=== PATIENT | male | born 1960 | race Caucasian/White ===

== ENCOUNTER → 2020-11-11 | Outpatient (CLI) | payer OTHER ==
[~2020-11-11] MED LIST: B Complex1 EAC2 PO; BOTOX COSMETIC100 U; BUPR100ER; CHOL10002; FINA5; FISH OIL 1,0001 EAC3; FLAX SEED OIL1000 MG PO; GRAPESEED OIL4000 ML MC; GREEN TEA CAPL1 EACH PO; GREEN TEA EXTR250 MG PO; Garlic1 EACH PO; MAGCHL64ER; PROBIOTIC1 EAC1 PO; SILD25T PO; Vitamin C100 M1 PO
[2020-11-11 18:01] LABS: BASOPHILS ABSOLUTE AUTO 0.06 K/mm3 (0.00-0.23); BASOPHILS PERCENT AUTO 1 % (0-2); EOSINOPHILS ABSOLUTE AUTO 0.06 K/mm3 (0.00-0.68); EOSINOPHILS PERCENT AUTO 1 % (0-6); Hematocrit 42.8 % (37.0-53.0); Hemoglobin 15.5 g/dL (13.5-17.5); IMMATURE GRAN ABSOLUTE AUTO 0.01 K/mm3 (0.00-0.10); IMMATURE GRAN PERCENT AUTO 0 % (0-1); LYMPHOCYTES ABSOLUTE AUTO 1.16 K/mm3 (0.84-5.20); LYMPHOCYTES PERCENT AUTO 22 % (21-46); MONOCYTES ABSOLUTE AUTO 0.45 K/mm3 (0.16-1.47); MONOCYTES PERCENT AUTO 9 % (4-13); Mean Corpuscular HGB 32.2 pg (26.0-34.0); Mean Corpuscular HGB Conc 36.2 g/dL (31.5-36.5); Mean Corpuscular Volume 89 fL (80-100); Mean Platelet Volume 10.7 fL (9.1-12.4); NEUTROPHILS ABSOLUTE AUTO 3.49 K/mm3 (1.96-9.15); NEUTROPHILS PERCENT AUTO 67 % (41-73); Platelet Count 276 K/mm3 (150-400); RDW Coefficient Variation 12.7 % (11.7-14.2); RDW Standard Deviation 41.1 fL (35.1-46.3); Red Blood Cell Count 4.82 M/mm3 (4.30-5.90); White Blood Cell Count 5.23 K/mm3 (4.00-11.30)
[2020-11-11 18:12] LABS: Alanine Aminotransfer (ALT/SGP 24 U/L (12-78); Albumin/Globulin Ratio 1.4 (0.8-1.8); Alk Phos 78 U/L (40-126); Anion Gap 4 mmol/L (6-16); Aspartate Aminotrans (AST/SGOT 14 U/L (12-37); Bilirubin, Total 0.3 mg/dL (0.1-1.0); Blood Urea Nitrogen 23 mg/dL (8-24); Bun/Creatinine Ratio 23.5 (12.0-20.0); CO2, Blood 31 mmol/L (21-32); Calcium, Blood 8.9 mg/dL (8.5-10.1); Chloride, Blood 103 mmol/L (98-108); Creatinine, Blood 0.98 mg/dL (0.60-1.20); Globulin, Blood 2.8 g/dL (2.2-4.0); Glomerular Filtration Rate >60 (60-); Glucose, Blood 96 mg/dL (70-99); Potassium, Blood 3.9 mmol/L (3.5-5.5); Sodium, Blood 138 mmol/L (136-145); Total Protein, Blood 6.8 g/dL (6.4-8.2)
== END | disposition home or self-care (01) ==
LOC: LAB SHORT 17:54 → LAB EV 17:54 → PLD 17:54
PROVIDERS: Chiropractor
DX: R07.9 Chest pain, unspecified (principal); R06.00 Dyspnea, unspecified
CPT/HCPCS: 80053; 83880; 84484; 85025; 85379

== ENCOUNTER → 2021-05-13 | Outpatient (CLI) | payer OTHER | LOC: LAB SHORT 18:14 → LAB 18:14 | DX: L08.9 Local infection of the skin and subcutaneous tissue, unspecified (principal); Z48.02 Encounter for removal of sutures | CPT/HCPCS: 87070; 87077; 87147; 87186; 87205 ==

== ENCOUNTER 2021-06-11 18:25 | Inpatient (IN) | payer OTHER ==
[~2021-06-11] VITALS: Ht 172.7 cm; Wt 81.9 kg
[~2021-06-11 18:25] MED LIST changes: -ASPI81CH PO; -ATOR10 PO; -CARV3.125 PO; -COLCHICINE0.6 MG PO; -Isosorbide Mono30 MG PO; -LISI5 PO; -PANT20 PO; -SPIR25 PO; -TAMSULOSIN HCL0.4 M1 PO; -TICA90TA PO
[2021-06-11] MEDS ORDERED: TAMSULOSIN HCL0.4 M1 PO (19:36)
[2021-06-11 19:40] LABS: Chloride (POC) 92 mmol/L (98-108); Glucose (ISTAT POC) 151 mg/dL (70-99); Hemoglobin (POC) 14.3 g/dL (13.5-17.5); Sodium (POC) 141 mmol/L (135-148); Total CO2 (POC) 38 mmol/L (21-32)
[2021-06-11 20:16] LABS: BASOPHILS ABSOLUTE AUTO 0.03 K/mm3 (0.00-0.23); BASOPHILS PERCENT AUTO 0 % (0-2); EOSINOPHILS PERCENT AUTO 0 % (0-6); Hematocrit 41.9 % (37.0-53.0); Hemoglobin 14.2 g/dL (13.5-17.5); IMMATURE GRAN ABSOLUTE AUTO 0.02 K/mm3 (0.00-0.10); IMMATURE GRAN PERCENT AUTO 0 % (0-1); LYMPHOCYTES PERCENT AUTO 8 % (21-46); MONOCYTES ABSOLUTE AUTO 0.25 K/mm3 (0.16-1.47); MONOCYTES PERCENT AUTO 3 % (4-13); Mean Corpuscular HGB 29.6 pg (26.0-34.0); Mean Corpuscular HGB Conc 33.9 g/dL (31.5-36.5); Mean Corpuscular Volume 88 fL (80-100); Mean Platelet Volume 10.5 fL (9.1-12.4); NEUTROPHILS ABSOLUTE AUTO 6.56 K/mm3 (1.96-9.15); NEUTROPHILS PERCENT AUTO 88 % (41-73); Platelet Count 246 K/mm3 (150-400); RDW Coefficient Variation 12.7 % (11.7-14.2); RDW Standard Deviation 41.2 fL (35.1-46.3); Red Blood Cell Count 4.79 M/mm3 (4.30-5.90); White Blood Cell Count 7.46 K/mm3 (4.00-11.30)
[2021-06-11 20:28] LABS: Troponin I 1.64 ng/mL (0.000-0.040)
[2021-06-11 20:30] LABS: International Normalized Ratio 1.13; Prothrombin Time Results 11.8 Sec (9.7-11.5)
[2021-06-11 20:32] LABS: PCO2 Arterial 43.8 mmHg (35-45); pH Blood Arterial 7.52 (7.35-7.45)
[2021-06-11 20:43] LABS: SARS-Cov-2 (COVID-19) PCR, MMC NEGATIVE (NEGATIVE)
[2021-06-11 20:44] LABS: Alanine Aminotransfer (ALT/SGP 22 U/L (12-78); Albumin, Blood 3.7 g/dL (3.4-5.0); Albumin/Globulin Ratio 1.3 (0.8-1.8); Alk Phos 57 U/L (50-136); Anion Gap 4 mmol/L (6-16); Aspartate Aminotrans (AST/SGOT 27 U/L (12-37); Bilirubin, Total 0.6 mg/dL (0.1-1.0); Blood Urea Nitrogen 15 mg/dL (8-24); Bun/Creatinine Ratio 15.5 (12.0-20.0); CHOL/HDL RATIO 2.1; CO2, Blood 38 mmol/L (21-32); Calcium, Blood 8.9 mg/dL (8.5-10.1); Chloride, Blood 100 mmol/L (98-108); Cholesterol 135 mg/dL (50-200); Creatinine, Blood 0.97 mg/dL (0.60-1.20); Globulin, Blood 2.9 g/dL (2.2-4.0); Glomerular Filtration Rate >60 (60-); Glucose, Blood 146 mg/dL (70-99); HDL Cholesterol 65 mg/dL (>39); LDL/HDL RATIO 0.9; Low Density Lipoprotein Chol 60 mg/dL (0-110); Magnesium, Blood 2.3 mg/dL (1.6-2.4); Sodium, Blood 142 mmol/L (136-145); Total Protein, Blood 6.6 g/dL (6.4-8.2); Triglycerides 50 mg/dL (30-160); Very Low Density Lipoprot Chol 10 mg/dL (6-32)
[2021-06-11 22:07] LABS: BASOPHILS ABSOLUTE AUTO 0.03 K/mm3 (0.00-0.23); BASOPHILS PERCENT AUTO 0 % (0-2); EOSINOPHILS PERCENT AUTO 0 % (0-6); Hematocrit 40.7 % (37.0-53.0); Hemoglobin 13.6 g/dL (13.5-17.5); IMMATURE GRAN ABSOLUTE AUTO 0.02 K/mm3 (0.00-0.10); IMMATURE GRAN PERCENT AUTO 0 % (0-1); LYMPHOCYTES ABSOLUTE AUTO 0.66 K/mm3 (0.84-5.20); LYMPHOCYTES PERCENT AUTO 9 % (21-46); MONOCYTES ABSOLUTE AUTO 0.32 K/mm3 (0.16-1.47); MONOCYTES PERCENT AUTO 4 % (4-13); Mean Corpuscular HGB 29.6 pg (26.0-34.0); Mean Corpuscular HGB Conc 33.4 g/dL (31.5-36.5); Mean Corpuscular Volume 89 fL (80-100); Mean Platelet Volume 9.8 fL (9.1-12.4); NEUTROPHILS ABSOLUTE AUTO 6.23 K/mm3 (1.96-9.15); NEUTROPHILS PERCENT AUTO 86 % (41-73); Platelet Count 232 K/mm3 (150-400); RDW Coefficient Variation 12.8 % (11.7-14.2); RDW Standard Deviation 41.3 fL (35.1-46.3); Red Blood Cell Count 4.59 M/mm3 (4.30-5.90); White Blood Cell Count 7.26 K/mm3 (4.00-11.30)
[2021-06-11 22:21] LABS: International Normalized Ratio 1.19; Prothrombin Time Results 12.4 Sec (9.7-11.5)
--- NOTE | 2021-06-11 22:30 | NUR ---
PT ARRIVES FROM SQUEEZER OPERATOR TO ROOM ICU 03. REPORT RECEIVED AT BEDSIDE AT 2145. PT PRESENTS IN BED. ALERT AND ORIENTED. PLEASANT AND COOPERATIVE WITH CARE AND ASSESSMENT. NO COMPLAINTS OF CHEST PAIN AT THIS TIME. GROIN SITE (RIGHT) INSPECTED WITH SQUEEZER OPERATOR RN. SOME BLOOD SHOWING THROUGH THE DRESSING. GROIN SITE WITHOUT HEMATOMA. GOOD DISTAL CMS CHECKS. WILL REVIEW CHART AND PLAN OF CARE FOR THIS PT.
[2021-06-11 22:43] LABS: Anion Gap 5 mmol/L (6-16); Blood Urea Nitrogen 13 mg/dL (8-24); Bun/Creatinine Ratio 13.7 (12.0-20.0); CO2, Blood 34 mmol/L (21-32); Chloride, Blood 99 mmol/L (98-108); Creatinine, Blood 0.95 mg/dL (0.60-1.20); Glomerular Filtration Rate >60 (60-); Glucose, Blood 120 mg/dL (70-99); Potassium, Blood 3.7 mmol/L (3.5-5.5); Sodium, Blood 138 mmol/L (136-145)
[2021-06-11 22:51] LABS: CPK Creatine Kinase 1521 U/L (39-308)
[2021-06-11 23:05] LABS: Creatine Kinase MB 220.3 ng/mL (0.0-3.6); Creatine Kinase MB Index 14.5 (0.0-4.0)
--- NOTE | 2021-06-12 | NUR ---
PT HAS MODERATE AMOUNT OF OOZING FROM RIGHT GROIN SITE. NO HEMATOMA NOTED. NEW DRESSING WITH NEENA AND PRESSURE DRESSING APPLIED. INTITIALLY PRESSURE HELD FOR 10 MINUTES. HAS HAD SMALL AMOUNT OF BLOOD SHOWING THROUGH NEENA DRESSING. WILL CONTINUE TO MONITOR.
--- NOTE | 2021-06-12 05:49 | NUR ---
PT HAS RETURN OF CHEST PAIN THIS AM. HE STATES 4 09/11 TO 01/17. ADMINISTERED 25 MCG'S FENTANYL PER PRN EMAR. THIS AFFECTIVE. WILL DO EKG THIS AM, AND CONTINUE TO MONITOR PT. WILL REPORT OFF TO ONCOMING RN.
[2021-06-12 06:43] LABS: BASOPHILS ABSOLUTE AUTO 0.04 K/mm3 (0.00-0.23); BASOPHILS PERCENT AUTO 1 % (0-2); EOSINOPHILS ABSOLUTE AUTO 0.04 K/mm3 (0.00-0.68); EOSINOPHILS PERCENT AUTO 1 % (0-6); Hematocrit 39.3 % (37.0-53.0); Hemoglobin 13.2 g/dL (13.5-17.5); IMMATURE GRAN ABSOLUTE AUTO 0.02 K/mm3 (0.00-0.10); IMMATURE GRAN PERCENT AUTO 0 % (0-1); LYMPHOCYTES ABSOLUTE AUTO 0.71 K/mm3 (0.84-5.20); LYMPHOCYTES PERCENT AUTO 12 % (21-46); MONOCYTES ABSOLUTE AUTO 0.57 K/mm3 (0.16-1.47); MONOCYTES PERCENT AUTO 10 % (4-13); Mean Corpuscular HGB 29.8 pg (26.0-34.0); Mean Corpuscular HGB Conc 33.6 g/dL (31.5-36.5); Mean Corpuscular Volume 89 fL (80-100); NEUTROPHILS ABSOLUTE AUTO 4.61 K/mm3 (1.96-9.15); NEUTROPHILS PERCENT AUTO 77 % (41-73); Platelet Count 203 K/mm3 (150-400); RDW Coefficient Variation 12.8 % (11.7-14.2); RDW Standard Deviation 42.2 fL (35.1-46.3); Red Blood Cell Count 4.43 M/mm3 (4.30-5.90); White Blood Cell Count 5.99 K/mm3 (4.00-11.30)
[2021-06-12 07:03] LABS: Anion Gap 5 mmol/L (6-16); Blood Urea Nitrogen 12 mg/dL (8-24); Bun/Creatinine Ratio 14.3 (12.0-20.0); CHOL/HDL RATIO 2.2; CO2, Blood 30 mmol/L (21-32); Calcium, Blood 7.9 mg/dL (8.5-10.1); Chloride, Blood 105 mmol/L (98-108); Cholesterol 114 mg/dL (50-200); Creatinine, Blood 0.84 mg/dL (0.60-1.20); Glomerular Filtration Rate >60 (60-); Glucose, Blood 98 mg/dL (70-99); HDL Cholesterol 53 mg/dL (>39); LDL/HDL RATIO 0.9; Low Density Lipoprotein Chol 47 mg/dL (0-110); Potassium, Blood 3.4 mmol/L (3.5-5.5); Sodium, Blood 140 mmol/L (136-145); Triglycerides 72 mg/dL (30-160); Very Low Density Lipoprot Chol 14 mg/dL (6-32)
[2021-06-12 07:21] LABS: Troponin I 47.8 ng/mL (0.000-0.040)
[2021-06-12 08:02] LABS: Creatine Kinase MB 334.5 ng/mL (0.0-3.6); Creatine Kinase MB Index 14.6 (0.0-4.0)
--- NOTE | 2021-06-12 09:07 | NUR ---
ASSUMED CARE BEDSIDE REPORT FROM LELA CHIN AT 0700. PT RESTING IN BED. A&OX 4. PLEASANT. C/O MILD CHEST PAIN, IMPROVED SINCE PCI. LUNGS CLEAR. SPEAKING IN FULL SENTANCES. SR, RATE 90'S, SLIGHT ST ELEVATION NOTED ON MONITOR. BP STABLE. DRESSING TO RIGHT GROIN, NEENA IN PLACE c OPSITE. NO ACTIVE BLEEDING, SOFT, NON TENDER, NO HEMATOMA NOTED. PT DENIES PAIN TO SITE. DR MAI ROUNDED. ECHO PENDING. STATUS CHANGED TO PCU. WILL CONTINUE TO MONITOR UNTIL TRANSFER.
[2021-06-12 09:24] LABS: Albumin, Blood 2.8 g/dL (3.4-5.0); Bilirubin, Direct 0.2 mg/dL (0.0-0.3); Bilirubin, Indirect 0.5 mg/dL (0.1-0.7); Bilirubin, Total 0.7 mg/dL (0.1-1.0); Globulin, Blood 2.7 g/dL (2.2-4.0); Total Protein, Blood 5.5 g/dL (6.4-8.2)
--- NOTE | 2021-06-12 11:14 | NUR ---
TRANSFER TO U ECHO AND XRAY COMPLETED. PT TRANSFERRED TO U. REPORT TO [place]. ALL BELONGINGS SENT c PT.
--- NOTE | 2021-06-12 12:01 | NUR ---
UPDATE SPOKE WITH DR. MAI REGARDING PT AST LEVEL GOING FROM 28 TO 278. ORDERS TO D/C SCHEDULED TYLENOL WITH A MAX DOSE OF 2000 MG IN 24 HRS. ORDERS TO DECREASE LIPITOR TO ONCE DAILY 10 MG AND D/C IV FLUIDS D/T ADEQUATE PO INTAKE. WILL CONT TO MONITOR.
[2021-06-12 15:04] LABS: Troponin I 30.3 ng/mL (0.000-0.040)
--- NOTE | 2021-06-12 17:54 | NUR ---
SHIFT SUMMARY PT ARRIVED TO UNIT A 1115 VIA WHEELCHAIR WITH BELONGINGS IN BAGS. PT WAS ABLE TO STAND AND TRANSFER SELF TO BED. PT A/O X4 AND COOPERATIVE OF CARE. VSS SINCE ARRIVAL TO UNIT WITH O2 SATS >94% ON RA. PT REPORTS CONSTANT SHEST PAIN/PRESSURE, TREATED PER EMAR. PT REPORTS BEING TIRED AND HAS BEEN RESTING FOR MAJORITY OF TIME SINCE ARRIVAL. CRITICAL VALUE TROPONINS AT 30.3. CREATININE KINASE AT 1551. AST ELEVATED AT 278, USING FENTANYL TO TREAT PAIN INSTEAD OF TYLENOL. NO SOB REPORTED. PT HAS BEEN UP TO TOILET, NO SOB REPORTED.
--- NOTE | 2021-06-12 18:12 | NUR ---
UPDATE THIS RN HAS REVIEWED AND AGREES WITH SHIFT SUMMARY DONE IN ICU.
--- NOTE | 2021-06-13 02:59 | NUR ---
Patient post STEMI cardiac cath stenting to distal circumflex. Groin site containing old/dried blood, no evidence of new bleeding. No hematoma. Pedal pulses equal bilaterally +2. C/o CP similar in nature to what he's had previously and even a bit improved. VSS. Slept most of this shift. Was NPO after midnight. Will report to dayshift RN.
[2021-06-13 04:43] LABS: BASOPHILS ABSOLUTE AUTO 0.02 K/mm3 (0.00-0.23); BASOPHILS PERCENT AUTO 0 % (0-2); EOSINOPHILS PERCENT AUTO 0 % (0-6); Hematocrit 37.9 % (37.0-53.0); Hemoglobin 12.4 g/dL (13.5-17.5); IMMATURE GRAN ABSOLUTE AUTO 0.02 K/mm3 (0.00-0.10); IMMATURE GRAN PERCENT AUTO 0 % (0-1); LYMPHOCYTES ABSOLUTE AUTO 0.49 K/mm3 (0.84-5.20); LYMPHOCYTES PERCENT AUTO 5 % (21-46); MONOCYTES ABSOLUTE AUTO 0.86 K/mm3 (0.16-1.47); MONOCYTES PERCENT AUTO 9 % (4-13); Mean Corpuscular HGB 29.6 pg (26.0-34.0); Mean Corpuscular HGB Conc 32.7 g/dL (31.5-36.5); Mean Corpuscular Volume 91 fL (80-100); Mean Platelet Volume 10.2 fL (9.1-12.4); NEUTROPHILS ABSOLUTE AUTO 7.85 K/mm3 (1.96-9.15); NEUTROPHILS PERCENT AUTO 85 % (41-73); Platelet Count 182 K/mm3 (150-400); RDW Coefficient Variation 12.9 % (11.7-14.2); RDW Standard Deviation 42.9 fL (35.1-46.3); Red Blood Cell Count 4.19 M/mm3 (4.30-5.90); White Blood Cell Count 9.24 K/mm3 (4.00-11.30)
[2021-06-13 05:00] LABS: Anion Gap 8 mmol/L (6-16); Blood Urea Nitrogen 12 mg/dL (8-24); Bun/Creatinine Ratio 14.5 (12.0-20.0); CO2, Blood 25 mmol/L (21-32); Calcium, Blood 8.3 mg/dL (8.5-10.1); Chloride, Blood 106 mmol/L (98-108); Creatinine, Blood 0.83 mg/dL (0.60-1.20); Glomerular Filtration Rate >60 (60-); Glucose, Blood 114 mg/dL (70-99); Magnesium, Blood 2.1 mg/dL (1.6-2.4); Potassium, Blood 3.7 mmol/L (3.5-5.5); Sodium, Blood 139 mmol/L (136-145)
--- NOTE | 2021-06-13 08:35 | NUR ---
DR SAUNDERS CALLED BY THIS RN. PT REPORTING 7/10 CHEST PAIN WITH INCREASING SOB. PT STATES PAIN IS SUBSTERNAL, MID CHEST, PRESSURE/SHARP, AND DOES NOT RADIATE. PT STATES SOB HAS BEEN INCREASING OVERNIGHT AND "I FEEL LIKE I CAN HARDLY BREATHE." PT PLACED ON 2L NC D/T SOB/CHEST PAIN, SP02 95%. ORDERS RECEIVED FOR CHEST XRAY, STAT ECHO, LABS AND MEDICATIONS, SEE CHART.
[2021-06-13 09:07] LABS: BASOPHILS ABSOLUTE AUTO 0.03 K/mm3 (0.00-0.23); BASOPHILS PERCENT AUTO 0 % (0-2); EOSINOPHILS PERCENT AUTO 0 % (0-6); Hematocrit 37.8 % (37.0-53.0); Hemoglobin 12.5 g/dL (13.5-17.5); IMMATURE GRAN ABSOLUTE AUTO 0.03 K/mm3 (0.00-0.10); IMMATURE GRAN PERCENT AUTO 0 % (0-1); LYMPHOCYTES ABSOLUTE AUTO 0.59 K/mm3 (0.84-5.20); LYMPHOCYTES PERCENT AUTO 6 % (21-46); MONOCYTES ABSOLUTE AUTO 0.85 K/mm3 (0.16-1.47); MONOCYTES PERCENT AUTO 8 % (4-13); Mean Corpuscular HGB 29.8 pg (26.0-34.0); Mean Corpuscular HGB Conc 33.1 g/dL (31.5-36.5); Mean Corpuscular Volume 90 fL (80-100); Mean Platelet Volume 10.1 fL (9.1-12.4); NEUTROPHILS ABSOLUTE AUTO 9.01 K/mm3 (1.96-9.15); NEUTROPHILS PERCENT AUTO 86 % (41-73); Platelet Count 185 K/mm3 (150-400); RDW Coefficient Variation 13.1 % (11.7-14.2); RDW Standard Deviation 43.1 fL (35.1-46.3); White Blood Cell Count 10.51 K/mm3 (4.00-11.30)
[2021-06-13 09:40] LABS: Anion Gap 5 mmol/L (6-16); Blood Urea Nitrogen 13 mg/dL (8-24); Bun/Creatinine Ratio 17.1 (12.0-20.0); CO2, Blood 27 mmol/L (21-32); CPK Creatine Kinase 918 U/L (39-308); Calcium, Blood 8.6 mg/dL (8.5-10.1); Chloride, Blood 106 mmol/L (98-108); Creatine Kinase MB 44.3 ng/mL (0.0-3.6); Creatine Kinase MB Index 4.8 (0.0-4.0); Creatinine, Blood 0.76 mg/dL (0.60-1.20); Glomerular Filtration Rate >60 (60-); Glucose, Blood 114 mg/dL (70-99); Potassium, Blood 3.8 mmol/L (3.5-5.5); Sodium, Blood 138 mmol/L (136-145)
--- NOTE | 2021-06-13 12:45 | NUR ---
ADMIT: 06/11/21 DISCHARGE: DX: STEMI CC: [email or web address] STAS CALL: RESIDENCE: [address] [facility] [place] [address] EMERGENCY CONTACT: Ayanna Rosado Jose Alejandro, Spouse / Partner, [phone] DX:ADHD, chronic alcoholism, depression/anxiety, see list DME: none CCM: none HOME HEALTH: none SUMMARY: (Admit: 06/11/21) 06/13/21 - Per chart review with Dr. Carvajal, cardiology needs to consult, echo has been completed and potential d/c plan is for Sunday. -[email or web address]
--- NOTE | 2021-06-13 13:03 | NUR ---
ADMIT: 06/11/21 DISCHARGE: DX: STEMI CC: [email or web address] STAS CALL: RESIDENCE: [address] [facility] [place] [address] EMERGENCY CONTACT: Ayanna Rosado Jose Alejandro, Spouse / Partner, [phone] DX:ADHD, chronic alcoholism, depression/anxiety, see list DME: none CCM: none HOME HEALTH: none SUMMARY: (Admit: 06/11/21) 06/13/21- per chart review with Dr. Carvajal, pt due for cardiology consult for today. Potentially discharge for Sunday. Pt had Echo completed 06/12 & 06/13. -[email or web address]
--- NOTE | 2021-06-13 18:11 | NUR ---
PT'S CHEST PAIN HAS BEEN WELL CONTROLLED WITH MORPHINE PRN. DR MAI REVIEWED TEST RESULTS FROM THIS AM AND SPOKE WITH THE PT AT BEDSIDE. POSSIBILITY PT HAS PERICARDITIS, STARTED ON CHOLCICINE TODAY WELL. PT DOES CONTINUE TO HAVE SOB AND CHEST PAIN, BUT IT HAS IMPROVED SINCE THIS AM AND DR MAI IS AWARE. DRESSING CHANGED TO R GROIN SITE, OLD BRUISING NOTED, SITE SOFT, NO BLEEDING OR HEMATOMA NOTED, PULSES PALPABLE. NO FURTHER NEEDS IDENTIFIED AT THIS TIME, WILL CONTINUE TO MONITOR AND REPORT TO NOC SHIFT RN.
[2021-06-14 04:25] LABS: Anion Gap 6 mmol/L (6-16); Blood Urea Nitrogen 14 mg/dL (8-24); Bun/Creatinine Ratio 16.7 (12.0-20.0); CO2, Blood 26 mmol/L (21-32); Calcium, Blood 8.6 mg/dL (8.5-10.1); Chloride, Blood 105 mmol/L (98-108); Creatinine, Blood 0.84 mg/dL (0.60-1.20); Glomerular Filtration Rate >60 (60-); Glucose, Blood 93 mg/dL (70-99); Potassium, Blood 3.7 mmol/L (3.5-5.5); Sodium, Blood 137 mmol/L (136-145)
--- NOTE | 2021-06-14 05:22 | NUR ---
NO ACUTE CHANGES NOTED
[2021-06-14 10:15] LABS: Anion Gap 6 mmol/L (6-16); Blood Urea Nitrogen 16 mg/dL (8-24); Bun/Creatinine Ratio 19.2 (12.0-20.0); CO2, Blood 27 mmol/L (21-32); Calcium, Blood 8.3 mg/dL (8.5-10.1); Chloride, Blood 102 mmol/L (98-108); Creatinine, Blood 0.83 mg/dL (0.60-1.20); Glomerular Filtration Rate >60 (60-); Glucose, Blood 153 mg/dL (70-99); Potassium, Blood 3.7 mmol/L (3.5-5.5); Sodium, Blood 135 mmol/L (136-145)
--- NOTE | 2021-06-14 11:07 | NUR ---
ASSUMPTION OF CARE NOTE PT ALERT AND ORIENTED X 4. HE IS PLEASANT AND COOPERATIVE WITH CARE. VSS. SPO2 >90% VIA 2L NC. PT RESTING IN BED MOST OF AM, IS ABLE TO AMBULATE ON OWN. WILL CONTINUE TO MONITOR.
--- NOTE | 2021-06-14 11:16 | NUR ---
Call to Dr. Gonzalez; reached his cell phone and spoke with ELSY Mariee in the color laboratory technician. Kodi said that Dr. Gonzalez is in a procedure. Gave him the message that the EKGs this morning (0505, and 1000 am) have shown changes, and would like the lime spreader to round on the pt and advise.
--- NOTE | 2021-06-14 11:18 | NUR ---
Pt states that he has only had mild chest discomfort this morning, rated 4/10.
--- NOTE | 2021-06-14 16:26 | NUR ---
CARE NOTE PT ALERT AND ORIENTED X4. PT DENIES PAIN, STATED THAT HE FEELS SLIGHT PRESSURE BUT NO PAIN. NO SHORTNESS OF BREATH NOTED, PT ON RA, SPO2 >90%. RIGHT ANGIO ACCESS SITE REMAINS OPEN TO AIR, BRUISING NOTED BUT NO CHANGE FROM PREVIOUS ASSESSMENT. CALL LIGHT IN REACH.
--- NOTE | 2021-06-14 17:40 | NUR ---
SHIFT SUMMARY PT ALERT AND ORIENTED X 4. HE IS PLEASANT AND COOPERATIVE WITH CARE. SPO2 >90% VIA RA. SBP RANGED 102-127, HR ST PER TELE. PT REPORTED PRESSURE IN CHEST RATHER THAN PAIN, HE STATED IF HE HAD TO RATE PAIN IT WAS 1/10. RIGHT GROIN ANGIO ACCESS SITE REMAINS OPEN TO AIR, MINIMAL BRUISING. BOTH RIGHT AND LEFT IV'S LOCATED IN AC REMAIN SALINE LOCKED. PT ABLE TO AMBULATE TO RESTROOM ON OWN AND DENIED FEELINGS OF SOB. CALL LIGHT IN REACH. WILL CONTINUE TO MONITOR UNITL REPORT GIVEN.
--- NOTE | 2021-06-15 04:40 | NUR ---
NO EVENTS OVER NIGHT, NO C/O OF PAIN GAVE TYLENOL PRIOR TO GOING TO SLEEP THIS EVENING.
--- NOTE | 2021-06-15 08:04 | NUR ---
Dr. Carvajal here to see the pt.
--- NOTE | 2021-06-15 10:12 | NUR ---
06/14/21- per chart review with Dr. Carvajal, pt is medically stable to d/c home. Pt will need close f/u with PCP and cardiology. Floor nurse will try to schedule appt with cardiology before discharge. Spoke with pt and scheduled his hospital f/u appt for 06/22/21 @ 9:20 W/ Dr. Aldana -andrés
[2021-06-15 10:47] LABS: BASOPHILS ABSOLUTE AUTO 0.03 K/mm3 (0.00-0.23); BASOPHILS PERCENT AUTO 1 % (0-2); EOSINOPHILS ABSOLUTE AUTO 0.03 K/mm3 (0.00-0.68); EOSINOPHILS PERCENT AUTO 1 % (0-6); Hematocrit 38.3 % (37.0-53.0); Hemoglobin 12.8 g/dL (13.5-17.5); IMMATURE GRAN ABSOLUTE AUTO 0.01 K/mm3 (0.00-0.10); IMMATURE GRAN PERCENT AUTO 0 % (0-1); LYMPHOCYTES ABSOLUTE AUTO 0.45 K/mm3 (0.84-5.20); LYMPHOCYTES PERCENT AUTO 7 % (21-46); MONOCYTES ABSOLUTE AUTO 0.48 K/mm3 (0.16-1.47); MONOCYTES PERCENT AUTO 7 % (4-13); Mean Corpuscular HGB 29.6 pg (26.0-34.0); Mean Corpuscular HGB Conc 33.4 g/dL (31.5-36.5); Mean Corpuscular Volume 89 fL (80-100); Mean Platelet Volume 10.3 fL (9.1-12.4); NEUTROPHILS ABSOLUTE AUTO 5.51 K/mm3 (1.96-9.15); NEUTROPHILS PERCENT AUTO 85 % (41-73); Platelet Count 219 K/mm3 (150-400); RDW Coefficient Variation 12.7 % (11.7-14.2); RDW Standard Deviation 41.5 fL (35.1-46.3); Red Blood Cell Count 4.33 M/mm3 (4.30-5.90); White Blood Cell Count 6.51 K/mm3 (4.00-11.30)
[2021-06-15 10:57] LABS: Anion Gap 5 mmol/L (6-16); Blood Urea Nitrogen 16 mg/dL (8-24); Bun/Creatinine Ratio 18.1 (12.0-20.0); CO2, Blood 28 mmol/L (21-32); CPK Creatine Kinase 151 U/L (39-308); Calcium, Blood 8.2 mg/dL (8.5-10.1); Chloride, Blood 103 mmol/L (98-108); Creatine Kinase MB 1.7 ng/mL (0.0-3.6); Creatine Kinase MB Index 1.1 (0.0-4.0); Creatinine, Blood 0.88 mg/dL (0.60-1.20); Glomerular Filtration Rate >60 (60-); Glucose, Blood 138 mg/dL (70-99); Potassium, Blood 3.5 mmol/L (3.5-5.5); Sodium, Blood 136 mmol/L (136-145)
[2021-06-15] MEDS ORDERED: ASPI81CH PO (11:06)
[2021-06-15] MEDS ORDERED: ATOR10 PO (11:12)
[2021-06-15] MEDS ORDERED: CARV3.125 PO (11:12)
[2021-06-15] MEDS ORDERED: Isosorbide Mono30 MG PO (11:13)
[2021-06-15] MEDS ORDERED: COLCHICINE0.6 MG PO (11:13)
[2021-06-15] MEDS ORDERED: LISI5 PO (11:14)
[2021-06-15] MEDS ORDERED: PANT20 PO (11:15)
[2021-06-15] MEDS ORDERED: SPIR25 PO (11:15)
[2021-06-15] MEDS ORDERED: TICA90TA PO (11:16)
--- NOTE | 2021-06-15 12:06 | NUR ---
Dr. Gonzalez was here, to see the pt before discharge. Pt exhibits no dyspnea, and has denied any discomfort this shift. Education for discharge and prescriptions was reviewed this morning, and again now at discharge. PT is eating lunch, son will pick him up around 1 pm.
== END 2021-06-15 12:56 | disposition home or self-care (01) | DRG 247 ==
LOC: ER 18:25 → ICUE 20:10 → PCU 20:10 → ICUW 20:10 → ICUE 21:42 → PCU 06-12 11:30
PROVIDERS: Emergency Medicine; Physician Assistant; ADMIT Internal Medicine Cardiovascular Disease
PROC: 4A023N7 Measurement of Cardiac Sampling and Pressure, Left Heart, Percutaneous Approach (ICD-10-PCS; principal; 2021-06-11)
PROC: 027034Z Dilation of Coronary Artery, One Artery with Drug-eluting Intraluminal Device, Percutaneous Approach (ICD-10-PCS; 2021-06-11)
PROC: B2111ZZ Fluoroscopy of Multiple Coronary Arteries using Low Osmolar Contrast (ICD-10-PCS; 2021-06-11)
DX: I21.19 ST elevation (STEMI) myocardial infarction involving other coronary artery of inferior wall (principal); I25.10 Atherosclerotic heart disease of native coronary artery without angina pectoris; F32.9 Major depressive disorder, single episode, unspecified; E87.6 Hypokalemia; Z87.891 Personal history of nicotine dependence; Z98.890 Other specified postprocedural states; Z79.899 Other long term (current) drug therapy; I10 Essential (primary) hypertension; N40.0 Benign prostatic hyperplasia without lower urinary tract symptoms; M19.90 Unspecified osteoarthritis, unspecified site; G20 Parkinson's disease; M54.12 Radiculopathy, cervical region; R73.9 Hyperglycemia, unspecified
CPT/HCPCS: 36415; 71045; 71046; 80047; 80048; 80053; 80061; 80076; 82550; 82553; 82803; 82947; 82977; 83036; 83690; 83735; 84484; 85014; 85025; 85347; 85610; 85651; 86141; 86850; 86900; 86901; 87081; 93005; 93010; 93308; 93321; 93458; 94760; 96374; 99152; 99153; 99285-25; A9270; C1725; C1760; C1769; C1874; C1887; C1894; C8929; C9113; C9606; J0690; J1644; J1650; J2250; J2270; J3010; J7030; J7050; Q9957; Q9967; U0004

== ENCOUNTER → 2021-06-11 | Outpatient (CLI) | payer OTHER ==
[~2021-06-11] MED LIST changes: +ASPI81CH PO; +ATOR10 PO; +CARV3.125 PO; +COLCHICINE0.6 MG PO; +Isosorbide Mono30 MG PO; +LISI5 PO; +PANT20 PO; +SPIR25 PO; +TAMSULOSIN HCL0.4 M1 PO; +TICA90TA PO
[2021-06-11 14:28] LABS: BASOPHILS ABSOLUTE AUTO 0.04 K/mm3 (0.00-0.23); BASOPHILS PERCENT AUTO 1 % (0-2); EOSINOPHILS ABSOLUTE AUTO 0.04 K/mm3 (0.00-0.68); EOSINOPHILS PERCENT AUTO 1 % (0-6); Hematocrit 45.5 % (37.0-53.0); Hemoglobin 15.2 g/dL (13.5-17.5); IMMATURE GRAN ABSOLUTE AUTO 0.01 K/mm3 (0.00-0.10); IMMATURE GRAN PERCENT AUTO 0 % (0-1); LYMPHOCYTES ABSOLUTE AUTO 0.77 K/mm3 (0.84-5.20); LYMPHOCYTES PERCENT AUTO 20 % (21-46); MONOCYTES ABSOLUTE AUTO 0.28 K/mm3 (0.16-1.47); MONOCYTES PERCENT AUTO 7 % (4-13); Mean Corpuscular HGB 29.6 pg (26.0-34.0); Mean Corpuscular HGB Conc 33.4 g/dL (31.5-36.5); Mean Corpuscular Volume 89 fL (80-100); Mean Platelet Volume 9.7 fL (9.1-12.4); NEUTROPHILS ABSOLUTE AUTO 2.67 K/mm3 (1.96-9.15); NEUTROPHILS PERCENT AUTO 70 % (41-73); Platelet Count 241 K/mm3 (150-400); RDW Coefficient Variation 12.9 % (11.7-14.2); RDW Standard Deviation 42.2 fL (35.1-46.3); Red Blood Cell Count 5.13 M/mm3 (4.30-5.90); White Blood Cell Count 3.81 K/mm3 (4.00-11.30)
[2021-06-11 14:41] LABS: Alanine Aminotransfer (ALT/SGP 23 U/L (12-78); Albumin, Blood 4.1 g/dL (3.4-5.0); Albumin/Globulin Ratio 1.3 (0.8-1.8); Alk Phos 66 U/L (40-126); Anion Gap 8 mmol/L (6-16); Aspartate Aminotrans (AST/SGOT 14 U/L (12-37); Bilirubin, Total 0.5 mg/dL (0.1-1.0); Blood Urea Nitrogen 16 mg/dL (8-24); Bun/Creatinine Ratio 15.7 (12.0-20.0); CO2, Blood 33 mmol/L (21-32); CPK Creatine Kinase 117 U/L (39-308); Calcium, Blood 9.1 mg/dL (8.5-10.1); Chloride, Blood 102 mmol/L (98-108); Creatinine, Blood 1.02 mg/dL (0.60-1.20); Globulin, Blood 3.2 g/dL (2.2-4.0); Glomerular Filtration Rate >60 (60-); Glucose, Blood 104 mg/dL (70-99); Potassium, Blood 4.3 mmol/L (3.5-5.5); Sodium, Blood 143 mmol/L (136-145); Total Protein, Blood 7.3 g/dL (6.4-8.2)
[2021-06-11 14:42] LABS: Troponin I <0.017 ng/mL (0.000-0.040)
== END | disposition home or self-care (01) ==
LOC: LAB SHORT 14:24
PROVIDERS: General Practice
DX: R07.9 Chest pain, unspecified (principal)
CPT/HCPCS: 80053; 82550; 84484; 85025

== ENCOUNTER → 2021-11-16 | Outpatient (CLI) | payer OTHER ==
[~2021-11-16] MED LIST changes: +ASPI81CH PO; +ATOR10 PO; +CARV3.125 PO; +COLCHICINE0.6 MG PO; +Isosorbide Mono30 MG PO; +LISI5 PO; +PANT20 PO; +SPIR25 PO; +TAMSULOSIN HCL0.4 M1 PO; +TICA90TA PO
[2021-11-18 09:28] LABS: Stool Occult Bld Immuno 1 Negative (NEGATIVE)
== END | disposition home or self-care (01) ==
LOC: LAB SHORT 19:30 → RAD SHORT 19:30
PROVIDERS: Internal Medicine Endocrinology, Diabetes & Metabolism
DX: Z12.11 Encounter for screening for malignant neoplasm of colon (principal)
CPT/HCPCS: G0328